=== PATIENT | female | born 1960 | race Caucasian/White ===

== ENCOUNTER 2021-01-09 22:05 | Emergency (ER) | payer BC ==
[2021-01-09] MEDS ORDERED: methylPREDNISolone Sodium Succinate 125 MG/2 ML SDV IVPUSH ONE (22:14)
[2021-01-09] MEDS ORDERED: EPINEPHrine 1 MG/ML SDV IM ONE ×2 (22:14→22:28)
[2021-01-09] MEDS ORDERED: diphenhydrAMINE 50 MG/ML SDV IVPUSH ONE (22:14)
--- NOTE | 2021-01-09 22:20 | EDM.PDOC ---
ED HPI GENERAL MEDICAL PROBLEM - General Chief Complaint: Allergic Reaction Stated Complaint: ANAPHALACTIC SHOCK Time Seen by Provider: 01/09/21 22:13 Source of Information: Reports: Patient, EMS History Limitations: Reports: No Limitations - History of Present Illness INITIAL COMMENTS - FREE TEXT/NARRATIVE: Elva is a 60-year-old female presenting to the ED for evaluation of anaphylaxis to a wasp sting. The patient reportedly received a sting to her left little toe and the back of the right calf. The patient is previously had a mild reaction to the sting years ago but had severe onset of symptoms shortly after being stung tonight. EMS was called and treated her on the scene giving her 2 rounds of epinephrine 0.5 mg IM, and albuterol neb treatment, and diphenhydramine 50 mg IV. The patient had some improvement in her symptoms, however on her arrival she was starting to relapse with mottling of her skin, urticaria, and tightness in the throat and chest. 2 18-gauge IVs were established by EMS prior to arrival. EMS reports her first blood pressure was 64/40. They were able to establish an IV and give her fluids. In route her blood pressure was 100/60 and in the ED she was 130/65. We initiated emergent treatment with the anaphylaxis kit and she received epinephrine 0.4 mg IM, Solu-Medrol 125 mg IV push, and diphenhydramine 25 mg IV push. - Related Data Allergies Allergy/AdvReac Type Severity Reaction Status Date / Time adhesive Allergy Rash Verified 01/09/21 22:16 bee venom protein (honey bee) Allergy Anaphylactic Verified 01/09/21 22:16 Shock ciprofloxacin [From Cipro] Allergy Hives Verified 01/09/21 22:16 Home Meds: Home Meds Aspirin [Adult Low Dose Aspirin EC] 81 mg PO DAILY 01/09/21 [History] Dicyclomine HCl [Bentyl] 10 mg PO ASDIRECTED PRN 01/09/21 [History] Glucosamine [Glucosamine Sulfate] 1 tab PO DAILY 01/09/21 [History] Insulin Glarg,Human.Rec.Analog [Lantus Solostar] 6 unit SQ BID 01/09/21 [History] Levothyroxine Sodium [Synthroid] 75 mcg PO DAILY 01/09/21 [History] Multivitamin 1 tab PO DAILY 01/09/21 [History] lisinopriL [Lisinopril] 20 mg PO DAILY 01/09/21 [History] EPINEPHrine [Epipen] 0.3 mg IM ASDIRECTED PRN #2 pen 01/10/21 [Rx] ED ROS ALLERGIC REACTION - Review of Systems Review Of Systems: See Below Constitutional: Reports: Diaphoresis HEENT: Reports: Throat Swelling Respiratory: Reports: Shortness of Breath Cardiovascular: Reports: Blood Pressure Problem, Lightheadedness GI/Abdominal: Reports: Nausea, Vomiting : Reports: No Symptoms Musculoskeletal: Reports: No Symptoms Skin: Reports: Urticaria (Generalized but most pronounced on the lower extremities) Neurological: Reports: Dizziness, Syncope (Secondary to hypotension), Weakness (Generalized) Psychiatric: Reports: Anxiety Hematologic/Lymphatic: Reports: No Symptoms Immunologic: Reports: Anaphylaxis (Due to wasp venom) ED EXAM GENERAL NO PERIP PULSE - Physical Exam Exam: See Below Exam Limited By: No Limitations General Appearance: Alert, Anxious, Moderate Distress Eye Exam: Bilateral Eye: EOMI, PERRL Throat/Mouth: Normal Inspection, Normal Oropharynx, Normal Voice, No Airway Compromise Head: Atraumatic, Normocephalic Neck: Normal Inspection, Supple, Non-Tender Respiratory/Chest: No Respiratory Distress, Lungs Clear, Normal Breath Sounds, No Accessory Muscle Use, Chest Non-Tender Cardiovascular: Normal Peripheral Pulses, Regular Rate, Rhythm, No Murmur, Tachycardia GI/Abdominal: Normal Bowel Sounds, Soft, Non-Tender Back Exam: Normal Inspection, Full Range of Motion Extremities: Normal Range of Motion, Normal Capillary Refill Neurological: Alert, Oriented, CN II-XII Intact, Normal Cognition, No Motor/Sensory Deficits Psychiatric: Normal Affect, Anxious Skin Exam: Erythema, Mottled, Rash (Generalized urticaria, worse on the lower extremities.) Lymphatic: No Adenopathy Course - Vital Signs Last Recorded V/S: Last Vital Signs Temp 36.3 C 01/10/21 00:33 Pulse 94 01/09/21 22:11 Resp 25 H 01/10/21 01:48 BP 117/53 L 01/10/21 01:48 Pulse Ox 94 L 01/10/21 01:48 - Orders/Labs/Meds Orders: Active Orders 24 hr Category Date Time Status Chest 1V Frontal [CR] Stat Exams 01/09/21 22:35 Taken Magnesium Sulfate/Water [Magnesium Sulfate in Water 2 Med 01/10/21 00:06 Active GM/50 ML] 2 gm Premix Bag 1 bag IV ONETIME Pantoprazole [ProTONIX IV] 80 mg Med 01/09/21 22:30 Active Sodium Chloride 0.9% [Normal Saline] 100 ml IV .BOLUS Medication Orders Pantoprazole Sodium 80 mg/ (Sodium Chloride) 100 mls @ 200 mls/hr IV .BOLUS NATALIE Last Admin: 01/09/21 22:38 Dose: 200 mls/hr Documented by: PENNY Magnesium Sulfate 2 gm/ Premix 50 mls @ 25 mls/hr IV ONETIME ONE Stop: 01/10/21 02:05 Last Admin: 01/10/21 00:16 Dose: 25 mls/hr Documented by: PENNY Labs: Laboratory Tests 01/09/21 01/09/21 Range/Units 10:46 10:46 WBC 23.7 H (4.5-11.0) K/uL RBC 4.58 (3.30-5.50) M/uL Hgb 14.3 (12.0-15.0) g/dL Hct 41.3 (36.0-48.0) % MCV 90 (80-98) fL MCH 31 (27-31) pg MCHC 35 (32-36) % Plt Count 250 (150-400) K/uL Neut % (Auto) 63.6 (36-66) % Lymph % (Auto) 25.5 (24-44) % Republic % (Auto) 8.9 H (2-6) % Eos % (Auto) 1.6 L (2-4) % Baso % (Auto) 0.4 (0-1) % Sodium 139 L (140-148) mmol/L Potassium 3.4 L (3.6-5.2) mmol/L Chloride 100 (100-108) mmol/L Carbon Dioxide 25 (21-32) mmol/L Anion Gap 17.4 H (5.0-14.0) mmol/L BUN 18 (7-18) mg/dL Creatinine 1.3 H (0.6-1.0) mg/dL Est Cr Clr Drug Dosing 42.44 mL/min Estimated GFR (MDRD) 42 L (>60) Glucose 208 H (74-106) mg/dL Calcium 7.9 L (8.5-10.1) mg/dL Magnesium 1.6 L (1.8-2.4) mg/dL Total Bilirubin 0.8 (0.2-1.0) mg/dL AST 25 (15-37) U/L ALT 37 (12-78) U/L Alkaline Phosphatase 82 (46-116) U/L C-Reactive Protein 0.07 (0.0-0.3) mg/dL Total Protein 5.7 L (6.4-8.2) g/dL Albumin 3.3 L (3.4-5.0) g/dL Globulin 2.4 (2.3-3.5) g/dL Albumin/Globulin Ratio 1.4 (1.2-2.2) Meds: Medications Generic Name Dose Route Start Last Admin Trade Name Freq PRN Reason Stop Dose Admin Pantoprazole Sodium 80 mg/ 100 mls @ 200 mls/hr 01/09/21 22:30 01/09/21 22:38 Sodium Chloride IV 200 mls/hr .BOLUS NATALIE Administration Magnesium Sulfate 2 gm/ Premix 50 mls @ 25 mls/hr 01/10/21 00:06 01/10/21 00:16 IV 01/10/21 02:05 25 mls/hr ONETIME ONE Administration Discontinued Medications Generic Name Dose Route Start Last Admin Trade Name Iainq PRN Reason Stop Dose Admin Calcium Gluconate 1 gm 01/10/21 00:05 01/10/21 00:24 Calcium Gluconate 10% 1 Gm/10 Ml Sdv IVPUSH 01/10/21 00:06 1 gm ONETIME ONE Administration Diphenhydramine HCl 25 mg 01/09/21 22:14 01/09/21 22:28 Diphenhydramine 50 Mg/Ml Sdv IVPUSH 01/09/21 22:15 25 mg ONETIME ONE Administration Epinephrine HCl 0.4 mg 01/09/21 22:14 01/09/21 22:27 Epinephrine 1 Mg/Ml Sdv IM 01/09/21 22:15 0.4 mg ONETIME ONE Administration Epinephrine HCl 0.5 mg 01/09/21 22:28 01/09/21 22:31 Epinephrine 1 Mg/Ml Sdv IM 01/09/21 22:29 0.5 mg ONETIME ONE Administration Methylprednisolone Sodium Succinate 125 mg 01/09/21 22:14 01/09/21 22:28 Methylprednisolone Sodium Succinate 125 Mg/2 Ml Sdv IVPUSH 01/09/21 22:15 125 mg ONETIME ONE Administration - Re-Assessments/Exams Free Text/Narrative Re-Assessment/Exam: 01/10/21 00:15 I reviewed the patient's x-rays and labs. Her chest x-ray is unremarkable for any significant findings. Her CBC has the leukocyte count of 23.7, hemoglobin of 14.3, hematocrit of 41.3, and a platelet count of 250,000. Her comprehensive metabolic panel significant for sodium 139, potassium 3.4, chloride of 100 with a bicarbonate of 25, BUN of 18 with a creatinine 1.3 and a glucose of 208. Her calcium is significantly low at 7.9 which corrects to 8.0 when you calculate her albumin level. Her magnesium is low at 1.6. Her C- reactive protein is normal at 0.07. The patient received a liter of normal saline IV initiated by EMS. She had a total of epinephrine 0.5 mg IM x2 with EMS and then had 2 additional injections with epinephrine 0.4 mg IM and 0.5 mg IM. The fourth shot started to turn her around. In addition, she received pantoprazole 80 mg IV, diphenhydramine 50 mg IV by EMS and an additional 25 mg IV in the ED, and Solu-Medrol 125 mg IV. Labs were obtained as above and the patient was given magnesium sulfate 1 g IV and calcium gluconate 1 g IV push for her hypomagnesemia and hypocalcemia. The patient is borderline hypokalemia. The combination of the magnesium and calcium likely attributed to her leg cramping yesterday. Because of the severity of this anaphylactic reaction to the standing, I am also going to prescribe an EpiPen the patient may fill in the morning. The patient was observed for 3 hours after the last round of epinephrine IM and had no significant rebound. At this time she is likely to not have a significant recurrence with this episode. Indications to return to the ED were discussed. Departure - Departure Time of Disposition: 02:04 Disposition: Home, Self-Care 01 Clinical Impression: Hypokalemia, Hypomagnesemia, Hypocalcemia, Elevated serum creatinine Insect stings Qualifiers: Encounter type: initial encounter Injury intent: accidental or unintentional Qualified Code(s): T63.481A - Toxic effect of venom of other arthropod, accidental (unintentional), initial encounter Anaphylactic reaction Qualifiers: Encounter type: initial encounter Qualified Code(s): T78.2XXA - Anaphylactic shock, unspecified, initial encounter - Discharge Information Prescriptions: EPINEPHrine [Epipen] 0.3 mg IM ASDIRECTED PRN #2 pen PRN Reason: Allergies Instructions: Hypomagnesemia, Hypokalemia, Anaphylactic Reaction, Adult, Hypocalcemia, Adult, Bee, Wasp, or Hornet Sting, Adult Referrals: PCP,None [Ordering Only Provider] - Forms: ED Department Discharge Care Plan Goals: Because of the severity of the reaction to the standing, we will prescribe an EpiPen for you to fill as soon as possible. Please keep this on your persons if there is risk for exposure to insect stings. You may want to refrain from beekeeping as you are likely to respond to that toxin as well. In addition, a prescription has been sent to the [facility] machine in the lobby for Ernesto that she may take for any other issues of nausea and vomiting. Sepsis Event Note (ED) - Evaluation Sepsis Screening Result: Possible Sepsis Risk - Focused Exam Vital Signs: Vital Signs Temp Pulse Resp BP Pulse Ox 01/10/21 01:48 25 H 117/53 L 94 L 01/10/21 00:33 36.3 C 17 107/46 L 95 01/09/21 23:45 21 H 110/46 L 95 01/09/21 23:15 19 121/54 L 90 L 01/09/21 22:50 14 143/68 H 96 01/09/21 22:11 35.9 C L 94 13 130/65 98 - Problem List & Annotations (1) Anaphylactic reaction SNOMED Code(s): 29923457 Code(s): T78.2XXA - ANAPHYLACTIC SHOCK, UNSPECIFIED, INITIAL ENCOUNTER Status: Acute Priority: High Current Visit: Yes Qualifiers: Encounter type: initial encounter Qualified Code(s): T78.2XXA - Anaphylactic shock, unspecified, initial encounter (2) Elevated serum creatinine SNOMED Code(s): 344898090 Code(s): R79.89 - OTHER SPECIFIED ABNORMAL FINDINGS OF BLOOD CHEMISTRY Status: Acute Priority: Medium Current Visit: Yes (3) Hypocalcemia SNOMED Code(s): 1717566 Code(s): E83.51 - HYPOCALCEMIA Status: Acute Priority: Medium Current Visit: Yes (4) Hypokalemia SNOMED Code(s): 36775163 Code(s): E87.6 - HYPOKALEMIA Status: Acute Priority: Medium Current Visit: Yes (5) Hypomagnesemia SNOMED Code(s): 647545897 Code(s): E83.42 - HYPOMAGNESEMIA Status: Acute Priority: Medium Current Visit: Yes (6) Insect stings SNOMED Code(s): 327407721, 617161765 Code(s): T63.481A - TOXIC EFFECT OF VENOM OF ARTHROPOD, ACCIDENTAL, INIT Status: Acute Priority: High Current Visit: Yes Qualifiers: Encounter type: initial encounter Injury intent: accidental or unintentional Qualified Code(s): T63.481A - Toxic effect of venom of other arthropod, accidental (unintentional), initial encounter - Problem List Review Problem List Initiated/Reviewed/Updated: Yes - My Orders Last 24 Hours: My Active Orders 01/09/21 22:30 Pantoprazole [ProTONIX IV] 80 mg Sodium Chloride 0.9% [Normal Saline] 100 ml IV .BOLUS 01/09/21 22:35 Chest 1V Frontal [CR] Stat 01/10/21 00:06 Magnesium Sulfate/Water [Magnesium Sulfate in Water 2 GM/50 ML] 2 gm Premix Bag 1 bag IV ONETIME - Assessment/Plan Last 24 Hours: My Active Orders 01/09/21 22:30 Pantoprazole [ProTONIX IV] 80 mg Sodium Chloride 0.9% [Normal Saline] 100 ml IV .BOLUS 01/09/21 22:35 Chest 1V Frontal [CR] Stat 01/10/21 00:06 Magnesium Sulfate/Water [Magnesium Sulfate in Water 2 GM/50 ML] 2 gm Premix Bag 1 bag IV ONETIME
[2021-01-09] MEDS ORDERED: Pantoprazole 80 MG in Sodium Chloride 0.9% 100 ML IV SCH (22:30)
[2021-01-10] MEDS ORDERED: Calcium Gluconate 10% 1 GM/10 ML SDV IVPUSH ONE (00:05)
[2021-01-10] MEDS ORDERED: Magnesium Sulfate/Water 2 GM in Premix Bag 1 BAG IV ONE (00:06)
--- NOTE | 2021-01-10 08:52 | CR ---
CHEST: Portable 01/09/2021 at 10:59 PM CLINICAL HISTORY:Anaphylaxis COMPARISON:None FINDINGS: The heart size, pulmonary vascularity and hilar structures are normal. No infiltrate effusion or pneumothorax is seen. IMPRESSION: No acute cardiopulmonary process.
== END 2021-01-10 02:32 | disposition home or self-care (01) ==
LOC: JP.ED 22:05
DX: T63.481A Toxic effect of venom of other arthropod, accidental (unintentional), initial encounter (principal); E87.6 Hypokalemia; R74.8 Abnormal levels of other serum enzymes; E83.42 Hypomagnesemia; E83.51 Hypocalcemia; Z79.82 Long term (current) use of aspirin; Z79.4 Long term (current) use of insulin
CPT/HCPCS: 36415; 71045; 71045-26; 80053; 83735; 85025; 86140; 96365; 96367; 96372; 96375; 99284; 99285-25; C9113; J0171; J0610; J1200; J2930; J3475